=== PATIENT | female | born 1980 | race Caucasian/White ===

== ENCOUNTER 2017-02-07 08:56 | Day surgery (SDC) | payer OTHER ==
[~2017-02-07] VITALS: Ht 165.1 cm; Wt 103.4 kg
[~2017-02-07 08:56] MED LIST: ACYCLOVIR200 MG PO; ADVAIR 100-501 EACH INH; ALLEGRA ALLERGY60 MG PO; ANTIVERT25 MG PO; BALNEOL CLEANSI89 ML TOP; BENEFIBER1 EAC1 PO; COLACE100 MG PO; DIPHENHYDRAMINE25 MG PO; DOXYCYCLINE HY100 MG PO; FIORINAL 50-321 EACH PO; LEVOTHYROXINE100 MCG PO; LEVOTHYROXINE125 MCG PO; NORCO 10-325 T1 EACH PO; NORCO 5-325 TA1 EACH PO; PROVENTIL HFA6.7 GM INH; VASELINE18 ML TOP; ZOFRAN ODT4 MG PO
--- NOTE | 2017-02-07 11:51 | NUR ---
02/07/17 1151 Shyla Del Real 1145 PATIENT ARRIVES TO PACU SLEEPING, AWAKENS TO VERBAL STIMULI, SPEAKS IN SLURRED SPEECH. RESP EVEN AND UNLABORED, NC AT 3 LITERS.
--- NOTE | 2017-02-09 14:16 | OR ---
[facility] [address] [place], [place] [address] Signed DATE OF PROCEDURE: 02/07/17 PREOPERATIVE DIAGNOSIS: Cervical intraepithelial neoplasia, III. POSTOPERATIVE DIAGNOSIS: Cervical intraepithelial neoplasia, III. PROCEDURE: LEEP (loop electrical excision procedure). SURGEON: Vish Winchester M.D. ANESTHESIA: MAC. ESTIMATED BLOOD LOSS: 10 mL. SPECIMEN: Anterior cervix, posterior cervix, endocervix, and ECC. DRAINS: None. FINDINGS Normal external genitalia, normal vagina, normal-appearing cervix. After application of acetic acid, there was moderate acetowhite lesion at the cervical os at 12 o'clock and another one at 6 o'clock. Both were close to the os. No additional lesions were seen. COMPLICATIONS: None. DESCRIPTION OF PROCEDURE The patient brought to the operating room, placed supine position. After adequate MAC was obtained, the patient was placed in dorsal lithotomy position, prepped and draped in usual sterile fashion. A coated speculum was placed in the vagina and the cervix observed. Acetic acid was placed on the cervix and the above findings noted. Lugol solution was then painted on the cervix and the same acetowhite areas appeared nonstaining and there were no other nonstaining areas of the cervix noted. At this point, 6 mL of 1% Lidocaine with epinephrine were injected into the cervix in a circumferential pattern each time aspirating to make sure that the injection was not into any vessel. A 10 x 20 loop was then used in the LEEP machine and the anterior lip of the cervix removed in 1 pass, posterior lip of the cervix was removed in 1 pass, and both specimens were labeled and passed off the table. A 10 x 10 mm loop was then used to remove a portion of the endocervix and this was labeled and passed off. The remaining portion of the endocervical canal was then curetted with Kevorkian curette and final specimen passed off. Good hemostasis was noted. A ball electrode was then used to cauterize the area of dissection again with no further bleeding. Monsel's solution was copiously placed in the cervical biopsy site to further help with healing and Electronically Signed By: VISH WINCHESTER MD 02/09/17 1416 PATIENT NAME: LINWOOD BEAVER OPERATIVE REPORT DATE OF : 78 PHYSICIAN: VISH WINCHESTER MD REPORT #: [id number] REPORT IS CONFIDENTIAL AND NOT TO BE RELEASED WITHOUT AUTHORIZATION [facility] [address] [place] [id number] Signed hemostasis. At this point, the vagina and cervix were observed and noted to have good hemostasis. All instruments were removed from the vagina. The patient tolerated the procedure well, went to recovery room in good condition. The sponge and instrument count correct at the end of the procedure. MD ISH Kinsey/Liz /[id number] cc: Candis Leal PA-C Electronically Signed By: VISH WINCHESTER MD 02/09/17 1416 PATIENT NAME: LINWOOD BEAVER OPERATIVE REPORT DATE OF : 78 PHYSICIAN: VISH WINCHESTER MD REPORT #: [id number] REPORT IS CONFIDENTIAL AND NOT TO BE RELEASED WITHOUT AUTHORIZATION
== END 2017-02-07 12:30 | disposition home or self-care (01) ==
LOC: DS 08:56
PROVIDERS: General Practice
PROC: 0UBC7ZX Excision of Cervix, Via Natural or Artificial Opening, Diagnostic (ICD-10-PCS; principal; 2017-02-07 10:15)
DX: D06.0 Carcinoma in situ of endocervix (principal); E03.9 Hypothyroidism, unspecified; J45.909 Unspecified asthma, uncomplicated; Z98.890 Other specified postprocedural states; Z79.899 Other long term (current) drug therapy; Z98.51 Tubal ligation status; Z90.89 Acquired absence of other organs; Z88.0 Allergy status to penicillin; Z88.8 Allergy status to other drugs, medicaments and biological substances; Z91.040 Latex allergy status
CPT/HCPCS: 00840; J1885; J2405; J2704; J3010

== ENCOUNTER 2019-03-12 07:00 | Day surgery (SDC) | payer OTHER ==
[~2019-03-12] VITALS: Ht 165.1 cm; Wt 103.4 kg
[2019-03-12] MEDS ORDERED: DOXEPIN HCL10 MG PO (07:27)
[2019-03-12] MEDS ORDERED: PAXIL20 MG PO (07:28)
--- NOTE | 2019-03-12 08:40 | NUR ---
03/12/19 0840 Shyla Del Real 0837 PATIENT ARRIVES TO PACU ASLEEP, AWAKENS WITH VERBAL STIMULI, THEN BACK TO SLEEP. RESP EVEN AND UNLABORED, ROOM AIR SATS >93%.
--- NOTE | 2019-03-12 14:47 | OR ---
[facility] [address] [place], [place] [address] Signed DATE OF OPERATION: 03/12/2019 SURGEON: Dilma Polo MD PREOPERATIVE DIAGNOSES: 1. Gastroesophageal reflux disease with heartburn and nausea. 2. History of peptic ulcer disease. 3. Epigastric abdominal pain. POSTOPERATIVE DIAGNOSES: 1. Mild diffuse gastroduodenitis. 2. Small ulcer in pyloric bulb. 3. Small hiatal hernia. PROCEDURE: EGD with CLOtest and biopsies of the pyloric bulb, antrum, and GE junction. ESTIMATED BLOOD LOSS: None. INDICATIONS: Sharon is a 38-year-old female, asked to see me for upper endoscopy. She has been through a colonoscopy with us previously. Consequently, she is familiar with endoscopy. She describes her acid reflux clear back to her teenage years. She had taken Tagamet back then. She said she just went through her divorce because her has been drinking quite a bit and will not take any measures to stop. Consequently, she has been under a lot of stress. She tried some omeprazole, but she, for some reason, thought it made it worse. She mentioned the heartburn and the nausea. She said she had epigastric abdominal pain. She mentioned an ulcer when she was younger. In the office, I gave Sharon a pamphlet on upper endoscopy. We looked at that together along with the risks including, but not limited to gas, bloating, crampy abdominal pain, bleeding, perforation requiring surgery, and missed diagnosis. She also recalls the need for IV conscious sedation. We had used propofol for her colonoscopy. However, the upper endoscopy was generally less stimulating and often we can get by on Versed and fentanyl. She had expressed understanding and wished to proceed. PROCEDURE NOTE: Sharon was taken into our endoscopy suite and placed in the supine semi-recumbent position. The posterior oropharynx was anesthetized with lidocaine spray. A bite block was utilized for the case. She was given a total of 10 mg of Versed and 100 mcg of Electronically Signed By: DILMA POLO MD 03/12/19 1447 PATIENT NAME: SHARON BEAVER OPERATIVE REPORT DATE OF : 78 REPORT #: [id number] PHYSICIAN: DILMA POLO MD PCP: ARNOLD CARMONA MD REPORT IS CONFIDENTIAL AND NOT TO BE RELEASED WITHOUT AUTHORIZATION [facility] [address] [place], [place] [address] Signed fentanyl to cover the case. Even then, she was only asleep for a brief amount of time and was immediately talking to us coherently following the procedure. Nevertheless, she did tolerate the procedure well. The adult gastroscope had been introduced, advanced all the way out into the third portion of the duodenum without difficulty. The duodenum was fine. The pyloric bulb showed just a tiny shallow ulceration off to one side. It is not bleeding. We took biopsies for pathologic review. She also has mild inflammatory changes in the pyloric bulb and diffusely throughout the stomach consistent with mild gastroduodenitis. She had a little retained food in the stomach. We took biopsies of the antrum for pathologic review as well as CLOtest. Upon retroflexion of the scope, she does have a small hiatal hernia. There were no gastric or esophageal varices. No ulcerations in the stomach. The scope was withdrawn up to the area of the GE junction, which was compliant without stricture. She has minimal disruption to the Z-line. However, there was a little granulation tissue, so we went ahead and took a biopsy along the Z-line. There was no Vargas's mucosa, no distal esophagitis. The middle and upper esophagus were unremarkable. The vocal cords were unremarkable. After this, the gas was suctioned out and the gastroscope removed. Sharon tolerated the procedure well. RECOMMENDATIONS: I will see Sharon back in my office in 7 to 14 days to review her results. She might consider a proton pump inhibitor twice a day for a couple of months to heal up this tiny ulcer and her gastric duodenitis. We will leave that up to Sharon and her primary care provider. Dilma Polo MD ALB/MODL /[id number] cc: MD Arnold Barney MD Copies: DILMA POLO MD Electronically Signed By: DILMA POLO MD 03/12/19 1447 PATIENT NAME: SHARON BEAVER OPERATIVE REPORT DATE OF : 78 REPORT #: [id number] PHYSICIAN: DILMA POLO MD PCP: ARNOLD CARMONA MD REPORT IS CONFIDENTIAL AND NOT TO BE RELEASED WITHOUT AUTHORIZATION [address] [address] Signed ~ Electronically Signed By: DILMA POLO MD 03/12/19 1447 PATIENT NAME: SHARON BEAVER OPERATIVE REPORT DATE OF : 78 REPORT #: [id number] PHYSICIAN: DILMA POLO MD PCP: ARNOLD CARMONA MD REPORT IS CONFIDENTIAL AND NOT TO BE RELEASED WITHOUT AUTHORIZATION
== END 2019-03-12 09:45 | disposition home or self-care (01) ==
LOC: DS 07:00
PROVIDERS: Colon & Rectal Surgery
PROC: 0DB78ZX Excision of Stomach, Pylorus, Via Natural or Artificial Opening Endoscopic, Diagnostic (ICD-10-PCS; 2019-03-12)
PROC: 0DB48ZX Excision of Esophagogastric Junction, Via Natural or Artificial Opening Endoscopic, Diagnostic (ICD-10-PCS; 2019-03-12)
PROC: 0DB98ZX Excision of Duodenum, Via Natural or Artificial Opening Endoscopic, Diagnostic (ICD-10-PCS; principal; 2019-03-12 09:00)
DX: K29.50 Unspecified chronic gastritis without bleeding (principal); K21.0 Gastro-esophageal reflux disease with esophagitis; K26.9 Duodenal ulcer, unspecified as acute or chronic, without hemorrhage or perforation; K44.9 Diaphragmatic hernia without obstruction or gangrene; Z87.19 Personal history of other diseases of the digestive system; E03.9 Hypothyroidism, unspecified; E66.9 Obesity, unspecified; Z88.0 Allergy status to penicillin; Z88.8 Allergy status to other drugs, medicaments and biological substances; Z91.040 Latex allergy status; Z79.899 Other long term (current) drug therapy; Z68.37 Body mass index [BMI] 37.0-37.9, adult
CPT/HCPCS: 36415; 84703; 86677; 99153; G0500; J2250; J3010; J7120

== ENCOUNTER 2019-10-26 10:11 | Emergency (ER) | payer BC ==
[~2019-10-26] VITALS: Ht 165.1 cm; Wt 102.1 kg
--- OUTSIDE RECORDS SUMMARY | ~2019-10-26 | XMS ---
Demographics + + + | Address | [address] | | | [address] | | | [place] [address] | + + + | Preferred Language | Unknown | + + + | Marital Status | Unknown | + + + | Religion Affiliation | Unknown | + + + | Race | Unknown | + + + | Ethnic Group | Unknown | + + + Author + + + | Author | [facility] | + + + | Organization | [facility] | + + + | Address | [address] | | | [place] [address] | + + + | Phone | | + + + Care Team Providers + + + + | Care Cell Tuber Hand Name | Role | Phone | + + + + Unavailable | Unavailable | + + + + PROBLEMS +---------+ + + +--------+ + + | Type | Condition | ICD9-CM | ICL59-XP | Onset | Condition | SNOMED | | | | Code | Code | Dates | Status | Code | +---------+ + + +--------+ + + | Problem | Asthma | 493.90 | | | Active | [id number] | +---------+ + + +--------+ + + | Problem | ABDMNAL | 789.61 | | | Active | [id number] | | | TNDR RT | | | | | | | | UPR QUAD | | | | | | +---------+ + + +--------+ + + | Problem | Hypothyroi | 244.9 | | | Active | [id number] | | | d | | | | | | +---------+ + + +--------+ + + | Problem | JOINT | 719.45 | | | Active | [id number] | | | PAIN-PELVI | | | | | | | | S | | | | | | +---------+ + + +--------+ + + ALLERGIES No Information SOCIAL HISTORY Never Assessed PLAN OF CARE VITAL SIGNS MEDICATIONS Unknown Medications RESULTS No Results PROCEDURES No Known procedures IMMUNIZATIONS No Known Immunizations MEDICAL (GENERAL) HISTORY + + +---------+ | Type | Description | Date | + + +---------+ | Medical History | Hypothyroidism | | + + +---------+ | Medical History | asthma | | + + +---------+ | Medical History | seasonal allergies | | + + +---------+ | Medical History | Abnormal PAP - 2009, ?2011 | | + + +---------+ | Medical History | STD (PID age 13) | | + + +---------+ | Medical History | headache | | + + +---------+ | Surgical History | Tubal Ligation | 2002 | + + +---------+ | Surgical History | tonsillectomy | 1987 | + + +---------+ | Surgical History | Lateral Sphynterectomy | 09/2015 | | | (anal fissure) | | + + +---------+ | Hospitalization History | see above | | + + +---------+ | Hospitalization History | abcess on perineum | 01/2017 | + + +---------+"
[~2019-10-26 10:11] MED LIST changes: +DOXEPIN HCL10 MG PO; +PAXIL20 MG PO
[2019-10-26] MEDS ORDERED: SYNTHROID175 MCG PO (10:28)
[2019-10-26] MEDS ORDERED: NORCO 5-325 TA1 EACH PO (11:45)
== END 2019-10-26 12:02 | disposition home or self-care (01) ==
LOC: ED 10:11
DX: S52.612A Displaced fracture of left ulna styloid process, initial encounter for closed fracture (principal); G43.909 Migraine, unspecified, not intractable, without status migrainosus; J45.909 Unspecified asthma, uncomplicated; Z88.0 Allergy status to penicillin; Z91.040 Latex allergy status; Z88.8 Allergy status to other drugs, medicaments and biological substances; Z79.899 Other long term (current) drug therapy; W01.0XXA Fall on same level from slipping, tripping and stumbling without subsequent striking against object, initial encounter
CPT/HCPCS: 73110; 99283-25

== ENCOUNTER 2019-12-16 14:53 | Emergency (ER) | payer OTHER ==
[~2019-12-16] VITALS: Ht 165.1 cm; Wt 102.1 kg
[~2019-12-16 14:53] MED LIST changes: +SYNTHROID175 MCG PO
[2019-12-16] MEDS ORDERED: NORCO 7.5-3251 EACH PO (16:21)
== END 2019-12-16 16:50 | disposition home or self-care (01) ==
LOC: ED 14:53
DX: S92.512A Displaced fracture of proximal phalanx of left lesser toe(s), initial encounter for closed fracture (principal); J45.909 Unspecified asthma, uncomplicated; G43.909 Migraine, unspecified, not intractable, without status migrainosus; Z88.0 Allergy status to penicillin; Z91.040 Latex allergy status; Z88.8 Allergy status to other drugs, medicaments and biological substances; Z79.899 Other long term (current) drug therapy; W23.0XXA Caught, crushed, jammed, or pinched between moving objects, initial encounter
CPT/HCPCS: 73660; 99283-25; A9270

== ENCOUNTER 2020-06-22 16:04 | Emergency (ER) | payer OTHER ==
[~2020-06-22] VITALS: Ht 165.1 cm; Wt 108.9 kg
[~2020-06-22 16:04] MED LIST changes: +NORCO 7.5-3251 EACH PO
[2020-06-22] MEDS ORDERED: LEXAPRO5 MG PO (16:24)
[2020-06-22] MEDS ORDERED: VITAMIN D325 MC2 PO (16:26)
--- NOTE | 2020-06-22 22:23 | EKG ---
[facility] [address] [facility] [place], [place] [address] Signed Normal sinus rhythm Possible Left atrial enlargement Rightward axis Borderline ECG No previous ECGs available Confirmed by FREDRICK HUFF MD ([id number]) on 06/22/2020 10:23:40 PM Electronically Signed By: FREDRICK HUFF MD 06/22/202222 PATIENT NAME: LINWOOD BEAVER Electrocardiogram DATE OF : 78 PHYSICIAN: FREDRICK HUFF MD REPORT #: [id number] REPORT IS CONFIDENTIAL AND NOT TO BE RELEASED WITHOUT AUTHORIZATION
== END 2020-06-22 17:35 | disposition home or self-care (01) ==
LOC: ED 16:04
DX: R07.9 Chest pain, unspecified (principal); J45.909 Unspecified asthma, uncomplicated; Z20.822 Contact with and (suspected) exposure to COVID-19; Z88.0 Allergy status to penicillin; Z91.040 Latex allergy status; Z88.8 Allergy status to other drugs, medicaments and biological substances; Z79.899 Other long term (current) drug therapy
CPT/HCPCS: 71046; 80053; 83690; 84484; 85025; 93005; 93010; 99285-25; A9270; C9803; U0003

== ENCOUNTER 2021-08-01 19:22 | Emergency (ER) | payer OTHER ==
[~2021-08-01] VITALS: Ht 165.1 cm; Wt 103.0 kg
[~2021-08-01 19:22] MED LIST changes: +LEXAPRO5 MG PO; +VITAMIN D325 MC2 PO
[2021-08-01] MEDS ORDERED: ONDANSETRON ODT8 MG PO (21:43)
== END 2021-08-01 22:40 | disposition home or self-care (01) ==
LOC: ED 19:22
DX: A08.4 Viral intestinal infection, unspecified (principal); G43.909 Migraine, unspecified, not intractable, without status migrainosus; E07.9 Disorder of thyroid, unspecified; J45.909 Unspecified asthma, uncomplicated; Z88.0 Allergy status to penicillin; Z91.040 Latex allergy status; Z88.8 Allergy status to other drugs, medicaments and biological substances; Z79.899 Other long term (current) drug therapy; Z20.822 Contact with and (suspected) exposure to COVID-19
CPT/HCPCS: 36415; 80053; 81001; 83690; 85025; 96374; 99284-25; A9270; C9803; J2405; J7030; U0003

== ENCOUNTER 2021-11-27 09:40 | Emergency (ER) | payer OTHER ==
[~2021-11-27] VITALS: Ht 165.1 cm; Wt 103.0 kg
[~2021-11-27 09:40] MED LIST changes: +ONDANSETRON ODT8 MG PO
== END 2021-11-27 11:45 | disposition home or self-care (01) ==
LOC: ED 09:40
DX: U07.1 COVID-19 (principal); J45.909 Unspecified asthma, uncomplicated; Z88.0 Allergy status to penicillin; Z88.8 Allergy status to other drugs, medicaments and biological substances; Z88.3 Allergy status to other anti-infective agents; Z91.040 Latex allergy status
CPT/HCPCS: 87502; A9270; C9803; U0003